=== PATIENT | male | born 1970 | race Caucasian/White ===

== ENCOUNTER 2019-07-01 19:52 | Emergency (ER) | payer MEDICAID, OTHER ==
[~2019-07-01] VITALS: Ht 180.3 cm; Wt 114.3 kg
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
[2019-07-01] MEDS ORDERED: LISI-603 PO (20:18)
[2019-07-01] MEDS ORDERED: ASPI-605 PO (20:18)
[2019-07-01] MEDS ORDERED: ACET250T3 PO (20:18)
[2019-07-01] MEDS ORDERED: CLON0.5T4 PO (20:18)
[2019-07-01] MEDS ORDERED: NIFE20CA8 PO (20:18)
[2019-07-01] MEDS ORDERED: ASPIRIN 81 MG TAB.CHEW ONE (20:24)
[2019-07-01] MEDS ORDERED: NITROGLYCERIN OINT 1 GM PACKET TP ONE ×2 (20:25→20:30)
[2019-07-01] MEDS ORDERED: ASPIRIN 81 MG TAB.CHEW PO ONE (20:30)
[2019-07-01 20:36] LABS: BASOPHILS # (AUTO) 0.1 K/uL (0.0-8.0); BASOPHILS % (AUTO) 1.4 % (0.0-2.0); EOSINOPHILS # (AUTO) 0.1 K/uL (0.0-0.7); EOSINOPHILS % (AUTO) 0.6 % (0.0-7.0); HEMATOCRIT 40.8 % (31.2-41.9); HEMOGLOBIN 13.5 g/dL (10.9-14.3); LYMPHOCYTES # (AUTO) 1.9 K/uL (20.0-40.0); LYMPHOCYTES % (AUTO) 18.6 % (20.5-51.5); MEAN CORPUSCULAR HEMOGLOBIN 28.7 uug (24.7-32.8); MEAN CORPUSCULAR HGB CONC 33 g/dL (32.3-35.6); MEAN CORPUSCULAR VOLUME 86.6 fL (75.5-95.3); MONOCYTES % (AUTO) 10.1 % (0.0-11.0); NEUTROPHILS # (AUTO) 7.1 K/uL (1.8-8.9); NEUTROPHILS % (AUTO) 69.3 % (38.5-71.5); PLATELET COUNT (AUTO) 322 K/uL (179-408); RED BLOOD CELL COUNT(AUTO) 4.71 MIL/uL (3.63-4.92); WHITE BLOOD COUNT (AUTO) 10.2 K/uL (3.8-11.8)
[2019-07-01 20:42] LABS: CREATININE 1.2 mg/dL (0.6-1.3); POTASSIUM 3.8 mmol/L (3.5-5.1)
[2019-07-01 20:55] LABS: BILIRUBIN,DIRECT 0.1 mg/dL (0.0-0.2); BILIRUBIN,TOTAL 0.3 mg/dL (0.2-1.0); TOTAL PROTEIN, SERUM 6.6 g/dL (6.4-8.2)
--- NOTE | 2019-07-01 22:30 | NUR ---
Patient is resting comfortably in bed with eyes closed
--- NOTE | 2019-07-01 23:55 | NUR ---
DR NASH MADE PATIENT AWARE OF TEST RESULTS.
--- NOTE | 2019-07-01 23:59 | NUR ---
Patient discharged to home in stable conditIon. Written and verbal after care instructions given. Patient verbalizes understanding of instructions.
[2019-07-02 00:05] VITALS: BP 129/76
== END 2019-07-02 00:18 | disposition home or self-care (01) ==
LOC: EDSEX 19:56 → ER 19:56
DX: R07.9 Chest pain, unspecified (principal); R94.31 Abnormal electrocardiogram [ECG] [EKG]; R27.0 Ataxia, unspecified; R42 Dizziness and giddiness; G89.4 Chronic pain syndrome; Z59.0 Homelessness; D89.89 Other specified disorders involving the immune mechanism, not elsewhere classified
CPT/HCPCS: 36415; 70030-TC; 71045; 85025; 93005; A4663

== ENCOUNTER 2022-09-02 19:35 | Emergency (ER) | payer MEDICAID, OTHER ==
[~2022-09-02] VITALS: Ht 180.3 cm; Wt 108.9 kg
[~2022-09-02 19:35] MED LIST: ACET250T3 PO; ASPI-605 PO; CLON0.5T4 PO; LISI20TA30 PO; NIFE20CA8 PO
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
[2022-09-02] MEDS ORDERED: ACETAMINOPHEN ES 500 MG TABLET ONE (20:09)
[2022-09-02] MEDS ORDERED: IBUPROFEN 600 MG TABLET ONE (20:09)
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
[2022-09-02] MEDS ORDERED: IBUPROFEN 600 MG TABLET PO ONE (20:15)
[2022-09-02] MEDS ORDERED: ACETAMINOPHEN ES 500 MG TABLET PO ONE (20:15)
--- NOTE | 2022-09-02 20:20 | NUR ---
Pt care continue as awaits CT test to be done and X-Ray is noted done as ordered.
--- NOTE | 2022-09-02 21:04 | NUR ---
Pt is off to CT. Pt care continue.
--- NOTE | 2022-09-02 21:16 | NUR ---
Pt is noted back from CT. Pt care continue as awaits results.
--- NOTE | 2022-09-02 21:31 | NUR ---
Pt is been discharge to Home with all Discharge instructions given with no S/S off distress or C/O Pain.
[2022-09-02 21:33] VITALS: BP 155/92
== END 2022-09-02 21:36 | disposition home or self-care (01) ==
LOC: ER 19:38
DX: M54.2 Cervicalgia (principal); M25.511 Pain in right shoulder; Z87.891 Personal history of nicotine dependence; Z79.82 Long term (current) use of aspirin; Z79.899 Other long term (current) drug therapy
CPT/HCPCS: 71250; 72125; 73010; 73030; A4663; A9150

== ENCOUNTER 2023-12-07 01:02 | Emergency (ER) | payer OTHER ==
[~2023-12-07] VITALS: Ht 180.3 cm; Wt 113.4 kg
[2023-12-07] MEDS ORDERED: ONDANSETRON 4 MG/2 ML VIAL ONE (01:48)
[2023-12-07] MEDS ORDERED: HYDROMORPHONE 1 MG/1 ML DISP.SYRIN ONE (01:48)
[2023-12-07] MEDS ORDERED: KETOROLAC TROMETHAMINE 15 MG INJ ONE (01:48)
[2023-12-07] MEDS: HYDROMORPHONE 1 MG/1 ML DISP.SYRIN IV ONE (01:54)
[2023-12-07 01:55] LABS: BASOPHILS # (AUTO) 0.1 K/UL (0.0-0.2); EOSINOPHILS # (AUTO) 0.1 K/uL (0.0-0.7); EOSINOPHILS % (AUTO) 0.9 % (0.0-7.0); HEMATOCRIT 46.7 % (36.7-47.1); HEMOGLOBIN 15.5 g/dL (12.5-16.3); LYMPHOCYTES # (AUTO) 1.9 K/uL (0.8-4.8); LYMPHOCYTES % (AUTO) 22.5 % (20.5-51.5); MEAN CORPUSCULAR HEMOGLOBIN 29.6 uug (23.8-33.4); MEAN CORPUSCULAR HGB CONC 33 g/dL (32.5-36.3); MEAN CORPUSCULAR VOLUME 89.5 fL (73.0-96.2); MONOCYTES % (AUTO) 12.4 % (0.0-11.0); NEUTROPHILS # (AUTO) 5.3 K/uL (1.8-8.9); NEUTROPHILS % (AUTO) 63.2 % (38.5-71.5); PLATELET COUNT (AUTO) 260 K/uL (152-348); RED BLOOD CELL COUNT(AUTO) 5.23 MIL/uL (4.06-5.63); RED CELL DISTRIBUTION WIDTH 13.7 % (12.1-16.2); WHITE BLOOD COUNT (AUTO) 8.4 K/uL (3.6-10.2)
[2023-12-07] MEDS: KETOROLAC TROMETHAMINE 15 MG INJ IVP ONE (01:55)
[2023-12-07] MEDS: IV NORMAL SALINE 1000 ML BAG IV ONE (01:55)
[2023-12-07] MEDS: ONDANSETRON 4 MG/2 ML VIAL IV ONE (01:55)
[2023-12-07 01:57] LABS: DIFFERENTIAL COMMENT 1
[2023-12-07 02:13] LABS: *BILIRUBIN,URIN NEGATIVE (NEGATIVE); *BLOOD, URINE NEGATIVE (NEGATIVE); *CLARITY,URINE CLEAR (CLEAR); *COLOR,URINE YELLOW (YELLOW); *KETONES,URINE NEGATIVE (NEGATIVE); *PROTEIN,URINE NEGATIVE (NEGATIVE); *UROBILINOGEN,URINE 0.2 E.U./dl (NORMAL); LEUKOCYTE ESTERASE ,URINE NEGATIVE (NEGATIVE); NITRITE, URINE NEGATIVE (NEGATIVE); PH,URINE 7.5 (5.0-8.0); UGLUCOSE NEGATIVE (NEGATIVE)
[2023-12-07 02:16] LABS: CALCIUM 9.3 mg/dL (8.5-10.1); CREATININE 1.4 mg/dL (0.6-1.3); POTASSIUM 3.6 mmol/L (3.5-5.1)
[2023-12-07] MEDS ORDERED: IOHEXOL 300 MG/ML 10 ML VIAL ONE (02:26)
[2023-12-07] MEDS ORDERED: IOHEXOL 300MG/ML 100 ML INFUS..BTL ONE (02:26)
[2023-12-07 02:28] LABS: ALBUMIN 3.6 g/dL (3.4-5.0); BILIRUBIN,DIRECT 0.1 mg/dL (0.0-0.2); BILIRUBIN,TOTAL 0.4 mg/dL (0.2-1.0)
[2023-12-07 03:43] LABS: *AMPHETAMINE, URINE NEGATIVE (NEGATIVE); *BARBITURATE, URINE NEGATIVE (NEGATIVE); *BENZODIAZEPINE, URINE NEGATIVE (NEGATIVE); *CANNABINOID, URINE NEGATIVE (NEGATIVE); *COCCAINE, URINE NEGATIVE (NEGATIVE); *OPIATE, URINE NEGATIVE (NEGATIVE); *PHENCYCLIDINE SCREEN,URINE NEGATIVE (NEGATIVE); FENTANYL, URINE NEGATIVE (NEGATIVE)
[2023-12-12 13:56] VITALS: BP 131/77; O2SAT 100
== END 2023-12-07 08:00 | disposition home or self-care (01) ==
LOC: ER 01:12
DX: R10.84 Generalized abdominal pain (principal); Z79.82 Long term (current) use of aspirin; Z98.890 Other specified postprocedural states; Z79.899 Other long term (current) drug therapy; Z60.2 Problems related to living alone
CPT/HCPCS: 99285; 74177; 96374; 96375; 96361; 80076; 80048; 83690; 85025; 36415; 80307; 81003; J1885; J2405; Q9967 ×2; J1170; J7040; A4606; A4663

== ENCOUNTER 2023-12-11 22:44 | Emergency (ER) | payer OTHER ==
[~2023-12-11] VITALS: Ht 180.3 cm; Wt 113.4 kg
[2023-12-11 23:40] LABS: *OCCULT BLOOD STOOL POSITIVE (NEGATIVE)
[2023-12-11 23:48] LABS: WHITE BLOOD COUNT (AUTO) 9.4 K/uL (3.6-10.2)
[2023-12-11 23:52] LABS: BASOPHILS # (AUTO) 0.1 K/UL (0.0-0.2); BASOPHILS % (AUTO) 1.1 % (0.0-2.0); EOSINOPHILS # (AUTO) 0.1 K/uL (0.0-0.7); EOSINOPHILS % (AUTO) 1.4 % (0.0-7.0); HEMATOCRIT 45.1 % (36.7-47.1); HEMOGLOBIN 15.1 g/dL (12.5-16.3); LYMPHOCYTES # (AUTO) 2.1 K/uL (0.8-4.8); LYMPHOCYTES % (AUTO) 22.2 % (20.5-51.5); MEAN CORPUSCULAR HEMOGLOBIN 29.6 uug (23.8-33.4); MEAN CORPUSCULAR HGB CONC 34 g/dL (32.5-36.3); MEAN CORPUSCULAR VOLUME 88.2 fL (73.0-96.2); MONOCYTES % (AUTO) 10.5 % (0.0-11.0); NEUTROPHILS # (AUTO) 6.1 K/uL (1.8-8.9); NEUTROPHILS % (AUTO) 64.8 % (38.5-71.5); PLATELET COUNT (AUTO) 282 K/uL (152-348); RED BLOOD CELL COUNT(AUTO) 5.11 MIL/uL (4.06-5.63)
[2023-12-11 23:54] LABS: CREATININE 1.2 mg/dL (0.6-1.3); POTASSIUM 3.4 mmol/L (3.5-5.1)
[2023-12-11 23:59] LABS: DIFFERENTIAL COMMENT 1
[2023-12-12] LABS: ALBUMIN 3.5 g/dL (3.4-5.0); BILIRUBIN,DIRECT 0.1 mg/dL (0.0-0.2); BILIRUBIN,TOTAL 0.6 mg/dL (0.2-1.0); TOTAL PROTEIN, SERUM 6.9 g/dL (6.4-8.2)
[2023-12-12 02:01] LABS: HEMATOCRIT 46.4 % (36.7-47.1); HEMOGLOBIN 15.3 g/dL (12.5-16.3)
[2023-12-12 02:28] VITALS: BP 130/90; TEMP 98; O2SAT 98
== END 2023-12-12 02:29 | disposition home or self-care (01) ==
LOC: ER 22:46
DX: K62.5 Hemorrhage of anus and rectum (principal); Z98.890 Other specified postprocedural states; Z79.82 Long term (current) use of aspirin; Z79.899 Other long term (current) drug therapy; Z60.2 Problems related to living alone
CPT/HCPCS: 36415; 85018; 85025; 85730; 86900; 86901; A4606; A4663

== ENCOUNTER 2024-07-20 23:15 | Emergency (ER) | payer OTHER ==
[~2024-07-20] VITALS: Ht 180.3 cm; Wt 117.9 kg
[2024-07-21 00:13] VITALS: O2SAT 99
== END 2024-07-21 00:30 | disposition left against medical advice (07) ==
LOC: ER 23:19
DX: M54.2 Cervicalgia (principal); M54.9 Dorsalgia, unspecified; G89.4 Chronic pain syndrome; Z79.82 Long term (current) use of aspirin; Z79.899 Other long term (current) drug therapy; Z87.891 Personal history of nicotine dependence; Z53.21 Procedure and treatment not carried out due to patient leaving prior to being seen by health care provider; Z86.69 Personal history of other diseases of the nervous system and sense organs; Z87.39 Personal history of other diseases of the musculoskeletal system and connective tissue; Z60.2 Problems related to living alone
CPT/HCPCS: A4606; A4663

== ENCOUNTER 2024-11-05 22:30 | Emergency (ER) | payer OTHER ==
[~2024-11-05] VITALS: Ht 180.3 cm; Wt 117.9 kg
[2024-11-06] MEDS ORDERED: KETOROLAC TROMETHAMINE 30 MG INJ ONE ×2 (02:03→03:07)
[2024-11-06 03:04] LABS: *BILIRUBIN,URIN NEGATIVE (NEGATIVE); *BLOOD, URINE NEGATIVE (NEGATIVE); *CLARITY,URINE CLEAR (CLEAR); *COLOR,URINE YELLOW (YELLOW); *KETONES,URINE NEGATIVE (NEGATIVE); *PROTEIN,URINE NEGATIVE (NEGATIVE); *UROBILINOGEN,URINE 0.2 E.U./dl (NORMAL); LEUKOCYTE ESTERASE ,URINE NEGATIVE (NEGATIVE); NITRITE, URINE NEGATIVE (NEGATIVE); UGLUCOSE NEGATIVE (NEGATIVE)
[2024-11-06] MEDS ORDERED: BACLOFEN 10 MG TABLET ONE (03:04)
[2024-11-06 03:12] LABS: *AMPHETAMINE, URINE NEGATIVE (NEGATIVE); *BARBITURATE, URINE NEGATIVE (NEGATIVE); *BENZODIAZEPINE, URINE NEGATIVE (NEGATIVE); *CANNABINOID, URINE NEGATIVE (NEGATIVE); *COCCAINE, URINE NEGATIVE (NEGATIVE); *OPIATE, URINE NEGATIVE (NEGATIVE); *PHENCYCLIDINE SCREEN,URINE NEGATIVE (NEGATIVE); FENTANYL, URINE NEGATIVE (NEGATIVE)
[2024-11-06] MEDS: BACLOFEN 10 MG TABLET PO ONE (03:15)
[2024-11-06] MEDS: KETOROLAC TROMETHAMINE 30 MG INJ IM ONE (03:18)
[2024-11-06 06:05] VITALS: BP 145/81
[2024-11-06] MEDS ORDERED: BACL10TA PO (06:24)
[2024-11-06] MEDS ORDERED: KETO10TA2 PO (06:24)
[2024-11-06 07:19] VITALS: BP 152/88; TEMP 97.7; O2SAT 98
== END 2024-11-06 07:21 | disposition home or self-care (01) ==
LOC: ER 22:53
DX: M54.2 Cervicalgia (principal); M25.519 Pain in unspecified shoulder; M54.6 Pain in thoracic spine; G89.29 Other chronic pain; Z79.82 Long term (current) use of aspirin; Z79.899 Other long term (current) drug therapy; Z87.891 Personal history of nicotine dependence; Z86.69 Personal history of other diseases of the nervous system and sense organs; Z87.39 Personal history of other diseases of the musculoskeletal system and connective tissue; Z60.2 Problems related to living alone
CPT/HCPCS: 99285; 72125; 72128; 96372; 80307; 81003; J1885; A4606; A4663

== ENCOUNTER 2024-11-06 12:24 | Emergency (ER) | payer OTHER ==
[~2024-11-06 12:24] MED LIST changes: +BACL10TA PO; +KETO10TA2 PO
== END 2024-11-06 14:39 | disposition left against medical advice (07) ==
LOC: ER 12:24
DX: F41.9 Anxiety disorder, unspecified (principal); Z53.21 Procedure and treatment not carried out due to patient leaving prior to being seen by health care provider